=== PATIENT | male | born 1985 | race Caucasian/White ===

== ENCOUNTER 2017-11-10 17:39 | Emergency (ER) | payer OTHER ==
[~2017-11-10] VITALS: Ht 182.9 cm; Wt 65.8 kg
--- NOTE | 2017-11-10 17:50 | ED.ADGEN ---
Adult General Chief Complaint Chief Complaint "... My Lt eye started rochelle bothering me maybe yesterday.. and to day... It seemed more irritated.. I had been swimming... but it... just got to bothering me more... 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 Recent been swimming and on his father's farm. Pt. has had no change in visual acuity. No hx of trauma. Travel from [place] and then to [place], before moving to [facility]. No visual changes. Patient has lesions at possibly 7:00 on cornea. There may be a few satellite lesions.. There is mild limbus injection at the same location. Does not seem to have consensual photophobia. Fundus exam benign. . Did not note significant cell , flare or other pathology. Patient denies previous injury to eye. Patient's vaccinations are up-to-date including tetanus. A swab culture of lesion made. No trigeminal and facial nerve tenderness or rash disposition on skin. EOMI, no lid lesions. No field defects noted. No adenopathy. No hx of immunosuppression. Review of Systems Review of Systems Constitutional: Denies fever or chills [] Eyes: No change in visual acuity. Has developed some redness, Lt. eye pain [] HENT: Denies nasal congestion or sore throat [] Respiratory: Denies cough or shortness of breath [] Cardiovascular: No additional information not addressed in HPI [] GI: Denies abdominal pain, nausea, vomiting, bloody stools or diarrhea [] : Denies dysuria or hematuria [] Musculoskeletal: Denies back pain or joint pain [] Integument: Denies rash or skin lesions [] Neurologic: Denies headache, focal weakness or sensory changes [] Endocrine: Denies polyuria or polydipsia [] All other systems were reviewed and found to be within normal limits, except as documented in this note. Family History Family History Non-contributory Current Medications Current Medications Current Medications Medications (Trade) Dose Ordered Sig/Deepthi Start Time Stop Time Status Last Admin Dose Admin Bupivacaine HCl (Sensorcaine Mpf 0.5%) 30 ml 1X ONCE 11/10/17 18:30 11/10/17 18:31 DC Bupivacaine HCl (Sensorcaine Pf 0.75%) 10 ml 1X ONCE 11/10/17 19:30 11/10/17 19:30 DC 11/10/17 19:01 10 ML Ciprofloxacin 1 drop 1X ONCE 11/10/17 18:45 11/10/17 18:46 DC 11/10/17 18:54 1 DROP Erythromycin (Romycin) 0.25 inch 1X ONCE 11/10/17 18:30 11/10/17 18:31 DC 11/10/17 18:54 0.25 INCH Fluorescein Sodium (Ful-Joann 1mg) 1 strip 1X ONCE 11/10/17 18:30 11/10/17 18:31 DC 11/10/17 18:30 1 STRIP Fluorometholone (Fml) 1 drop 1X ONCE 11/10/17 19:30 11/10/17 19:30 DC 11/10/17 18:55 1 DROP Hydrocodone Bitartrate/ Ibuprofen (Vicoprofen 7.5-200) 2 tab 1X ONCE 11/10/17 19:30 11/10/17 19:30 DC 11/10/17 19:11 2 TAB Ketorolac Tromethamine (Acular) 1 drop 1X ONCE 11/10/17 19:00 11/10/17 19:01 DC 11/10/17 18:55 1 DROP Tetracaine HCl (Tetracaine) 1 drop 1X ONCE 11/10/17 19:00 11/10/17 19:01 DC 11/10/17 18:55 1 DROP Trifluridine (Viroptic) 1 drop 1X ONCE 11/10/17 19:00 11/10/17 19:01 Cancel Allergies Allergies Allergies Coded Allergies Type Severity Reaction Last Updated Verified No Known Drug Allergies 11/10/17 No Physical Exam Physical Exam Constitutional: Well developed, well nourished, mild distress, non-toxic appearance. [] HENT: Normocephalic, atraumatic, bilateral external ears normal, oropharynx moist, no oral exudates, nose normal. [] Eyes: PERRLA, EOMI, conjunctiva normal, no discharge.except as noted in HPI Neck: Normal range of motion, no tenderness, supple, no stridor. [] Cardiovascular:Heart rate regular rhythm, no murmur [] Lungs & Thorax: Bilateral breath sounds clear to auscultation [] Abdomen: Bowel sounds normal, soft, no tenderness, no masses, no pulsatile masses. [] Skin: Warm, dry, no erythema, no rash. [] Back: No tenderness, no CVA tenderness. [] Extremities: No tenderness, no cyanosis, no clubbing, ROM intact, no edema. [] Neurologic: Alert and oriented X 3, normal motor function, normal sensory function, no focal deficits noted. [] Psychologic: Affect normal, judgement normal, mood normal. [] Current Patient Data Vital Signs Vital Signs Date Time Temp Pulse Resp B/P (MAP) Pulse Ox O2 Delivery O2 Flow Rate FiO2 11/10/17 17:55 60 20 11/10/17 17:55 98.1 96 Room Air EKG EKG [] Radiology/Procedures Radiology/Procedures [] Course & Med Decision Making Course & Med Decision Making Pertinent Labs and Imaging studies reviewed. (See chart for details) Call placed to Dr. Messina officer -information technology teacher 1830 hrs Will send culture. Tx with Viroptic not available. Will use cipro qtts, , Toradol qtts and Erythromycin ointment qid. Toradol qtts qid. Follow up with [facility] on sunday. Return if any concerns. yardage caller advised he would call pt. and plan follow up. - [phone] Pt. also to follow up at [place]. [] Final Impression Final Impression 1. Lt. Eye[] Ulcer-/ Lesion Dragon Disclaimer Dragon Disclaimer This electronic medical record was generated, in whole or in part, using a voice recognition dictation system. CHRISTOPHER BEARD MD Nov 10, 2017 17:50
[2017-11-10 17:55] VITALS: BP 118/78
[2017-11-10] MEDS ORDERED: ERYTHROMYCIN 0.5% OPHTH OINTMENT 1GM TUBE. OS ONE (18:30)
[2017-11-10] MEDS ORDERED: FLUORESCEIN 1MG EYE STRIP. OS ONE (18:30)
[2017-11-10] MEDS ORDERED: BUPIVACAINE MPF 0.5% 30 ML VIAL. SQ ONE (18:30)
[2017-11-10] MEDS ORDERED: CIPROFLOXACIN 0.3% OPHTH SOLUTION 2.5ML BOTTLE. OS ONE (18:45)
[2017-11-10] MEDS ORDERED: HYDR-79 PO (18:52)
[2017-11-10] MEDS ORDERED: KETOROLAC TROMETHAMINE 0.5% OPHTH SOLUTION 3ML BOTTLE. OS ONE (19:00)
[2017-11-10] MEDS ORDERED: TRIFLURIDINE 1% OS ONE (19:00)
[2017-11-10] MEDS ORDERED: TETRACAINE 0.5% OPHTH SOLUTION 4ML BOTTLE. OS ONE (19:00)
[2017-11-10] MEDS ORDERED: FLUOROMETHOLONE 0.1% OS ONE (19:30)
[2017-11-10] MEDS ORDERED: BUPIVACAINE PF 0.75% 10 ML VIAL SQ ONE (19:30)
[2017-11-10] MEDS ORDERED: HYDROcodon/IBUPROFEN 7.5/200MG 1 TAB TABLET PO ONE (19:30)
== END 2017-11-10 19:15 | disposition home or self-care (01) ==
LOC: ER 17:39
DX: H01.8 Other specified inflammations of eyelid (principal)
CPT/HCPCS: 87071; 87075; 96372; 99284; J3490